=== PATIENT | female | born 1990 | race Two or more races ===

== ENCOUNTER 2020-01-21 18:08 | Emergency (ER) | payer OTHER ==
--- NOTE | 2020-01-21 19:55 | EDM.PDOC ---
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 oGldsmith is a very pleasant 29-year-old woman with no chronic medical p roblems, on no medications, who now presents to the ED over a concern of a possible miscarriage. She states that her LMP was 5-1/2 weeks ago. She is . She states that she is not trying to get , but she is sexually active with her , and on no form of control whatsoever. She states that she passed a large blood clot or tissue around 15:00 this afternoon, followed by vaginal bleeding for about half an hour. She has been experiencing pelvic cramps. She has had scant vaginal bleeding since about 15:30. No urinary symptoms. No prior similar symptoms. Here in the ED, the patient is found to be hemodynamically stable, afebrile, saturating 100% on room air. Other than today's events, the patient denies having a recent fever, chills, sore throat, ear pain, nasal or sinus congestion, cough, dyspnea, chest pain, palpitations, nausea, vomiting, constipation, diarrhea, abdominal pain, urinary symptoms, recent weight gain or weight loss, recent bloody bowel movements or black bowel movements, recent joint aches, headaches, or rashes. The patient does not have a PCP or Fabrication Technician. Pelvic Pain Score (Numeric/FACES): 6 - Related Data Allergies Allergy/AdvReac Type Severity Reaction Status Date / Time No Known Allergies Allergy Verified 01/21/20 18:45 Home Meds: Home Meds . 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 ED EXAM - Physical Exam Exam: See Below Exam Limited By: No Limitations General Appearance: Alert, WD/WN, No Apparent Distress Eye Exam: Bilateral Eye: EOMI, Normal Inspection Ears: Normal External Exam, Hearing Grossly Normal Nose: Normal Inspection Throat/Mouth: No Airway Compromise, Other (Wearing a surgical mask) Head: Atraumatic, Normocephalic Neck: Normal Inspection, Full Range of Motion Respiratory/Chest: No Respiratory Distress, Lungs Clear, Normal Breath Sounds, No Accessory Muscle Use Cardiovascular: Normal Peripheral Pulses, Regular Rate, Rhythm, No Edema, No Gallop, No JVD, No Murmur, No Rub GI/Abdominal Exam: Normal Bowel Sounds, Soft, No Organomegaly, No Distention, No Abnormal Bruit, No Mass, Tender (Very slight, suprapubically only. Nontender elsewhere.) Rectal Exam: Deferred Back Exam: Normal Inspection, Full Range of Motion, NT Extremities: Normal Inspection, Normal Range of Motion, No Pedal Edema, Normal Capillary Refill Neurological: Alert, Oriented, Normal Cognition, No Motor/Sensory Deficits Psychiatric: Normal Affect Skin Exam: Warm, Dry, Intact, Normal Color, No Rash Course - Vital Signs Last Recorded V/S: Last Vital Signs Temp 36.9 C 01/21/20 18:42 Pulse 66 01/21/20 18:42 Resp 20 01/21/20 18:42 BP 110/73 01/21/20 18:42 Pulse Ox 100 01/21/20 18:42 - Orders/Labs/Meds Labs: Laboratory Tests 01/21/20 Range/Units 19:57 Urine HCG, Qual Negative (NEGATIVE) - Re-Assessments/Exams Free Text/Narrative Re-Assessment/Exam: 01/21/20 19:52 As above, the patient passed either a blood clot or some tissue, along with some blood around 15:00 this afternoon, and has been experiencing some pelvic cramps and scant vaginal bleeding since. She is presuming that she had an unknown and suffered a miscarriage, and, based on her history, she is probably correct, since her LMP was about 5-1/2 weeks ago. The quickest way to determine if this could be a spontaneous is to check a urine test. If positive, I will perform a pelvic exam to examine her cervix, and order an ultrasound and blood type. If negative, then no further work-up is necessary. 01/21/20 20:29 Notified by Lorene TRUONG that the patient told her that she needs to go home to pick up driver her kids - ? - the patient does not have any children, so I am not sure what that means. A urine sample for a urine test has been sent to the lab, but has not yet resulted. If the patient needs to leave, I have no objection. 01/21/20 20:41 The patient's urine test returned negative, indicating that she did not experience a miscarriage today, rather, it likely represents a delayed menstrual period. Departure - Departure Time of Disposition: 20:30 Disposition: Home, Self-Care 01 Condition: Good Clinical Impression: Delayed menstruation - Discharge Information *PRESCRIPTION DRUG MONITORING PROGRAM REVIEWED*: Not Applicable *COPY OF PRESCRIPTION DRUG MONITORING REPORT IN PATIENT CONCEPCION: Not Applicable Referrals: PCP,None [Primary Care Provider] - Forms: ED Department Discharge Sepsis Event Note (ED) - Evaluation Sepsis Screening Result: No Definite Risk - Focused Exam Vital Signs: Vital Signs Temp Pulse Resp BP Pulse Ox 01/21/20 18:42 36.9 C 66 20 110/73 100
== END 2020-01-21 20:30 | disposition home or self-care (01) ==
LOC: JD.ED 18:08
DX: N91.0 Primary amenorrhea (principal)
CPT/HCPCS: 81025; 99282; 99284

== ENCOUNTER 2020-01-23 19:20 | Emergency (ER) | payer OTHER ==
--- NOTE | 2020-01-23 20:13 | EDM.PDOC ---
ED HPI GENERAL MEDICAL PROBLEM - General Chief Complaint: [place] Problem Stated Complaint: HAD MISCARRIAGE NOW CRAMPING Time Seen by Provider: 01/23/20 19:27 Source of Information: Reports: Patient History Limitations: Reports: No Limitations - History of Present Illness INITIAL COMMENTS - FREE TEXT/NARRATIVE: Mrs. Goldsmith is a very pleasant 29-year-old woman with no chronic medical problems, on no medications, who was seen by me in this ED 2 nights ago, 01/21/2020, for a concerned that she may have suffered a spontaneous . She stated that her LMP was 5-1/2 weeks ago, G0, P0, and that she was not trying to get , but that she was sexually active with her and on no form of control whatsoever. She stated that she had passed a large blood clot or tissue around 15:00 that afternoon, followed by vaginal bleeding for about half an hour, followed by pelvic cramps and scant vaginal bleeding. She did not have any urinary symptoms and had not suffered prior similar symptoms. She states that EMS had been summoned, and told her that she had had a miscarriage. She came to the ED by private vehicle and was found to be hemodynamically stable, afebrile, saturating 100% on room air. Her physical exam revealed very slight suprapubic tenderness, but no tenderness elsewhere, with the remainder of her physical exam being unremarkable. Work-up included a urine test, which returned negative, however, the patient decided to leave the ED about 10 minutes prior to the urine test results, therefore she left under the impression that she had suffered a miscarriage. The patient now returns the ED stating that she has had increased cramps although minimal vaginal bleeding. She states that she has also been feeling more emotional than normal. She has not received any medical care since being seen on Monday, and did not take a home test. Here in the ED, the patient is found to be hemodynamically stable, afebrile, saturating 96% on room air. Other than the pelvic cramps with scant vaginal bleeding, the patient denies having a recent fever, chills, sore throat, ear pain, nasal or sinus congestion, cough, dyspnea, chest pain, palpitations, nausea, vomiting, constipation, diarrhea, abdominal pain, urinary symptoms, recent weight gain or weight loss, recent bloody bowel movements or black bowel movements, recent joint aches, headaches, or rashes. The patient does not have a PCP or Risk Control Officer. Lower Pelvic Pain Score (Numeric/FACES): 4 - Related Data Allergies Allergy/AdvReac Type Severity Reaction Status Date / Time No Known Allergies Allergy Verified 01/23/20 19:37 Home Meds: Home Meds . 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 ED EXAM, RENAL/ - Physical Exam Exam: See Below Exam Limited By: No Limitations General Appearance: Alert, WD/WN, No Apparent Distress GI/Abdominal: Normal Bowel Sounds, Soft, No Organomegaly, No Distention, No Abnormal Bruit, No Mass, Tender (Minimal suprapubic, otherwise nontender) Course - Vital Signs Last Recorded V/S: Last Vital Signs Temp 36.6 C 01/23/20 19:30 Pulse 88 01/23/20 19:30 Resp 16 01/23/20 19:30 BP 127/85 01/23/20 19:30 Pulse Ox 96 01/23/20 19:30 - Re-Assessments/Exams Free Text/Narrative Re-Assessment/Exam: 01/23/20 20:06 As above, the patient was seen in this ED on 01/21/2020 after passing either a blood clot or tissue, followed by pelvic cramps and spotting. She states that EMS had told her that she had suffered a miscarriage of an unknown . Unfortunately, the patient left the ED without waiting for her urine test, which resulted just 10 minutes later. It was negative, which we would not expect if the patient had just suffered a spontaneous , as -hCG would be expected to still be present for some time. She now returns to the ED with continued cramps, spotting, and feeling increasingly emotional, still concerned that she suffered a miscarriage 2 days ago. I explained to the patient that if in fact EMS had told her that she had suffered a miscarriage, that it was unfortunate, because EMS is not trained to make diagnoses, which she understood. I offered to perform a quantitative hCG, which is more sensitive than a urine test, but the patient declined. This time, I have to conclude that the patient is suffering from an usual and late menstrual period, but not a spontaneous . The patient expressed understanding. I do not object to the patient declining a serum quantitative hCG level, because even if positive, it would not change our management. While the patient is having pelvic cramps, she has minimal vaginal bleeding, and therefore neither medical nor surgical treatment is indicated. The patient expressed understanding of this, as well. Departure - Departure Time of Disposition: 20:10 Disposition: Home, Self-Care 01 Condition: Good Clinical Impression: Menstrual cramps - Discharge Information *PRESCRIPTION DRUG MONITORING PROGRAM REVIEWED*: Not Applicable *COPY OF PRESCRIPTION DRUG MONITORING REPORT IN PATIENT CONCEPCION: Not Applicable Instructions: Dysmenorrhea Referrals: Jodi Arrington NP [Nurse Practitioner] - Forms: ED Department Discharge Additional Instructions: You were seen in the emergency room for pelvic cramps and vaginal spotting after passing a blood clot or possible tissue on 01/21/2020. The urine test on 01/21/2020 was negative, indicating that not only were you not , but that it was unlikely that you had recently been . In other words, you did not suffer a miscarriage on Monday. Based on your history, physical exam, and negative test on 01/21/2020, you are suffering from menstrual cramps. We recommend that you take [id number] ibuprofen or Midol as needed for discomfort. A heating pad may also help. We recommend that you follow-up in the clinic with with Jodi Arrington NP, or one of the other providers, to establish a PCP. If any other problems, please do not hesitate to return to the ER. Sepsis Event Note (ED) - Evaluation Sepsis Screening Result: No Definite Risk - Focused Exam Vital Signs: Vital Signs Temp Pulse Resp BP Pulse Ox 01/23/20 19:30 36.6 C 88 16 127/85 96
== END 2020-01-23 20:21 | disposition home or self-care (01) ==
LOC: JD.ED 19:20
DX: N94.6 Dysmenorrhea, unspecified (principal)
CPT/HCPCS: 99282; 99283

== ENCOUNTER 2020-08-19 08:23 | Emergency (ER) | payer BC, OTHER ==
--- NOTE | 2020-08-19 08:51 | EDM.PDOC ---
ED HPI GENERAL MEDICAL PROBLEM - General Chief Complaint: Gastrointestinal Problem Stated Complaint: VOMITING [id number] Time Seen by Provider: 08/19/20 08:42 Source of Information: Reports: Patient History Limitations: Reports: No Limitations - History of Present Illness INITIAL COMMENTS - FREE TEXT/NARRATIVE: 30-year-old female presents to the ED for evaluation of intractable nausea and vomiting that she has been experiencing primarily since August 14. Patient states she started back on Prozac 20 mg once daily for depression anxiety symptoms on July 30. Subsequently she has developed intractable nausea and vomiting without diarrhea. Infectious not had a bowel movement for at least 5 to 6 days. Note denies any hematemesis. Emesis has been primarily bilious or dry heaves. Feels mild dizziness and lightheadedness and generalized weakness. Prozac was discontinued tenured yesterday at the request of her primary care provider Susy Farfan. No previous abdominal surgery. test done yesterday was negative. Other labs revealed a mild hypokalemia. Patient reports that she had a similar reaction to Prozac in the past. Has been taking Zofran 4 mg sublingual every 4-6 hours without relief of nausea or vomiting. Onset: Gradual Onset Date: 08/14/20 (Has felt nauseated but began vomiting August 14. Started back on Prozac 20 mg daily July 30) Duration: Day(s):, Constant Location: Reports: Abdomen (Persistent upper abdominal discomfort with nausea and vomiting dry heaves.) Quality: Reports: Other (Current vomiting primarily bilious material) Severity: Severe Improves with: Reports: None Worsens with: Reports: Other (Zofran sublingual has not helped at all controlled the nausea or vomiting.) Context: Denies: Activity, Exercise ( Trying to eat or drink.), Lifting, Sick Contact, Trauma, Other Associated Symptoms: Reports: Loss of Appetite, Malaise, Nausea/Vomiting (Intractable nausea and vomiting for the last 5 days). Denies: Confusion, Chest Pain, Cough, cough w sputum, Diaphoresis, Fever/Chills, Headaches, Rash, Seizure Treatments BIG 6 DEALER: Reports: Other (see below) (None.) Generalized Pain Score (Numeric/FACES): 5 Abdomen Pain Score (Numeric/FACES): 3 - Related Data Allergies Allergy/AdvReac Type Severity Reaction Status Date / Time No Known Allergies Allergy Verified 08/19/20 08:30 Home Meds: Home Meds FLUoxetine HCl [Fluoxetine HCl] 20 mg PO DAILY 08/19/20 [History] LORazepam [Ativan] 0.5 mg PO BID PRN 08/19/20 [History] Ondansetron [Zofran ODT] 0.4 mg PO ASDIRECTED PRN 08/19/20 [History] Prochlorperazine Maleate [Compazine] 5 mg PO Q8H PRN #12 tablet 08/19/20 [Rx] Past Medical History - Past Health History Medical/Surgical History: Denies Medical/Surgical History - Past Surgical History HEENT Surgical History: Reports: Oral Surgery (wisdom teeth extraction) Social & Family History - Family History Family Medical History: No Pertinent Family History - Caffeine Use Caffeine Use: Reports: Energy Drinks - Living Situation & Occupation Living situation: Reports: , with Spouse 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 Denies: Fever HEENT: Reports: No Symptoms Respiratory: Reports: No Symptoms Cardiovascular: Reports: No Symptoms Endocrine: Reports: No Symptoms GI/Abdominal: Reports: Abdominal Pain (Epigastric abdominal discomfort.), Decreased Appetite, Nausea, Vomiting (Intractable nausea and vomiting of bilious emesis.) : Reports: No Symptoms Musculoskeletal: Reports: No Symptoms Skin: Reports: No Symptoms Neurological: Reports: Dizziness (Occasional dizziness), Weakness (Early signs o f weakness.) Psychiatric: Reports: Anxiety, Depression Hematologic/Lymphatic: Reports: No Symptoms Immunologic: Reports: No Symptoms ED EXAM, GI/ABD - Physical Exam Exam: See Below Exam Limited By: No Limitations General Appearance: Alert, WD/WN, No Apparent Distress, Other (Patient is afebrile on examination reported temperature is 35.8 degrees which she feels warmer than this. Heart rate is 82 and sinus respiratory is 18 pulse ox 98% on room air BP 143/93.) Eyes: Bilateral: Normal Appearance (No scleral icterus or blepharal pallor.) Throat/Mouth: Normal Inspection, Normal Lips, Normal Oropharynx, Other Head: Atraumatic (Tongue is mildly moist.), Normocephalic Neck: Normal Inspection, Supple, Non-Tender, Full Range of Motion. No: Lymphadenopathy (L), Lymphadenopathy (R) Respiratory/Chest: No Respiratory Distress, Lungs Clear, Normal Breath Sounds, No Accessory Muscle Use Cardiovascular: Normal Peripheral Pulses, Regular Rate, Rhythm, No Edema, No Gallop, No Murmur GI/Abdominal Exam: Normal Bowel Sounds, Soft, Non-Tender, No Organomegaly, No Abnormal Bruit, No Mass, Pelvis Stable Extremities: Normal Inspection, Normal Range of Motion, Non-Tender, No Pedal Edema Neurological: Alert, Oriented, CN II-XII Intact, Normal Cognition Psychiatric: Normal Affect, Normal Mood Skin Exam: Warm, Dry, Intact, Normal Color, No Rash Course - Vital Signs Last Recorded V/S: Last Vital Signs Temp 37.0 C 08/19/20 10:58 Pulse 78 08/19/20 10:58 Resp 16 08/19/20 10:58 BP 116/77 08/19/20 10:58 Pulse Ox 100 08/19/20 10:58 - Orders/Labs/Meds Labs: Laboratory Tests 08/19/20 08/19/20 08/19/20 Range/Units 08:45 08:45 08:45 WBC 7.71 (3.98-10.04) K/mm3 RBC 4.59 (3.98-5.22) M/mm3 Hgb 14.3 (11.2-15.7) gm/dl Hct 41.8 (34.1-44.9) % MCV 91.1 (79.4-94.8) fl MCH 31.2 (25.6-32.2) pg MCHC 34.2 (32.2-35.5) g/dl RDW Std Deviation 41.7 (36.4-46.3) fL Plt Count 297 (182-369) K/mm3 MPV 9.6 (9.4-12.3) fl Neut % (Auto) 72.1 H (34.0-71.1) % Lymph % (Auto) 22.2 (19.3-51.7) % Pacific % (Auto) 4.7 (4.7-12.5) % Eos % (Auto) 0.1 L (0.7-5.8) Baso % (Auto) 0.6 (0.1-1.2) % Neut # (Auto) 5.56 (1.56-6.13) K/mm3 Lymph # (Auto) 1.71 (1.18-3.74) K/mm3 Pacific # (Auto) 0.36 (0.24-0.36) K/mm3 Eos # (Auto) 0.01 L (0.04-0.36) K/mm3 Baso # (Auto) 0.05 (0.01-0.08) K/mm3 Sodium 138 (136-145) mEq/L Potassium 3.9 (3.5-5.1) mEq/L Chloride 102 (98-107) mEq/L Carbon Dioxide 23 (21-32) mEq/L Anion Gap 16.9 H (5-15) BUN 26 H (7-18) mg/dL Creatinine 0.8 (0.55-1.02) mg/dL Est Cr Clr Drug Dosing 84.29 mL/min Estimated GFR (MDRD) > 60 (>60) mL/min BUN/Creatinine Ratio 32.5 H (14-18) Glucose 102 (74-106) mg/dL Calcium 8.6 (8.5-10.1) mg/dL Total Bilirubin 0.5 (0.2-1.0) mg/dL AST 26 (15-37) U/L ALT 41 (14-59) U/L Alkaline Phosphatase 58 (46-116) U/L C-Reactive Protein <0.2 (<1.0) mg/dL Total Protein 7.8 (6.4-8.2) g/dl Albumin 4.4 (3.4-5.0) g/dl Globulin 3.4 gm/dL Albumin/Globulin Ratio 1.3 (1-2) Lipase 90 (73-393) U/L Ketones (0.0-0.3) mM SARS-CoV-2 RNA (MICHAEL) (NEGATIVE) 08/19/20 08/19/20 Range/Units 08:45 09:20 WBC (3.98-10.04) K/mm3 RBC (3.98-5.22) M/mm3 Hgb (11.2-15.7) gm/dl Hct (34.1-44.9) % MCV (79.4-94.8) fl MCH (25.6-32.2) pg MCHC (32.2-35.5) g/dl RDW Std Deviation (36.4-46.3) fL Plt Count (182-369) K/mm3 MPV (9.4-12.3) fl Neut % (Auto) (34.0-71.1) % Lymph % (Auto) (19.3-51.7) % Pacific % (Auto) (4.7-12.5) % Eos % (Auto) (0.7-5.8) Baso % (Auto) (0.1-1.2) % Neut # (Auto) (1.56-6.13) K/mm3 Lymph # (Auto) (1.18-3.74) K/mm3 Pacific # (Auto) (0.24-0.36) K/mm3 Eos # (Auto) (0.04-0.36) K/mm3 Baso # (Auto) (0.01-0.08) K/mm3 Sodium (136-145) mEq/L Potassium (3.5-5.1) mEq/L Chloride (98-107) mEq/L Carbon Dioxide (21-32) mEq/L Anion Gap (5-15) BUN (7-18) mg/dL Creatinine (0.55-1.02) mg/dL Est Cr Clr Drug Dosing mL/min Estimated GFR (MDRD) (>60) mL/min BUN/Creatinine Ratio (14-18) Glucose (74-106) mg/dL Calcium (8.5-10.1) mg/dL Total Bilirubin (0.2-1.0) mg/dL AST (15-37) U/L ALT (14-59) U/L Alkaline Phosphatase (46-116) U/L C-Reactive Protein (<1.0) mg/dL Total Protein (6.4-8.2) g/dl Albumin (3.4-5.0) g/dl Globulin gm/dL Albumin/Globulin Ratio (1-2) Lipase (73-393) U/L Ketones 0.03 (0.0-0.3) mM SARS-CoV-2 RNA (MICHAEL) Positive H (NEGATIVE) Meds: Medications Discontinued Medications Generic Name Dose Route Start Last Admin Trade Name Freq PRN Reason Stop Dose Admin Diphenhydramine HCl 12.5 mg 08/19/20 08:52 08/19/20 09:00 Diphenhydramine 50 Mg/Ml Sdv IVPUSH 08/19/20 08:53 12.5 mg ONETIME ONE Administration Dextrose/Lactated Ringer's 1,000 mls @ 999 mls/hr 08/19/20 09:00 08/19/20 09:04 Dextrose 5%-Lactated Ringers IV 999 mls/hr ASDIRECTED MAXWELL Administration Metoclopramide HCl 7.5 mg 08/19/20 08:52 08/19/20 09:02 Metoclopramide 10 Mg/2 Ml Sdv IVPUSH 08/19/20 08:53 7.5 mg ONETIME ONE Administration Ondansetron HCl 4 mg 08/19/20 10:50 08/19/20 10:56 Ondansetron 4 Mg/2 Ml Sdv IVPUSH 08/19/20 10:51 4 mg ONETIME ONE Administration - Radiology Interpretation Free Text/Narrative:: 30-year-old female presents to the ED with a history of intractable nausea and vomiting for the last 5 days. She believes is secondary to use of Prozac 20 mg once daily which was started on July 30 for underlying anxiety depression. She believes this because she was treated with the same medication in the past and had similar reaction in terms of recurrent nausea and vomiting. She denies any diarrhea. She denies any fever chills. Generalized weakness. Emesis has been bilious without any hematemesis. She has not had a bowel movement for at least 4 to 5 days. She has been using Zofran sublingual 4 mg every 4 to 6 hours without any relief of the nausea vomiting since yesterday. Prozac 20 mg daily was discontinued by her primary care provider yesterday. Examination in the ED is essentially normal. Plan IV D5 Ringer's lactate at open to provide rehydration. Will reassess serum electrolytes CBC and serum lipase levels. - Re-Assessments/Exams Free Text/Narrative Re-Assessment/Exam: 08/19/20 09:59 Patient did get fairly sleepy after IV Benadryl 12.5 mg IV. She also felt a little anxious presumably due to the Reglan potentially causing a dystonic reaction when mixed with Prozac. She reports nausea seems to be better. I will give her some water to try and sip on. 08/19/20 10:01Labs reveal a white count of 7.71 with 72% neutrophils. Hemoglobin 14.3 with hematocrit of 41.8 platelet count 297,000. Sodium 138 potassium 3.9 chloride 102 bicarb 23. Anion gap is 16.9. BUN is 26 with a creatinine of 0.8 glucose is 102 with a calcium of 8.6 liver function normal C- reactive protein less than 0.2 total protein 7.8 with an albumin fraction of 4.4 serum lipase normal at 90 and serum ketones are normal at 0.03. Therefore she is showing mild dehydration with a BUN/creatinine ratio of 32.5. Renal function is preserved. No other abnormalities are appreciated. Particular serum potassium is 3.9 today. 08/19/20 10:11 COVID-19 screen is positive. She has been appraised of the findings. She will have a 1 view chest x-ray done at this time. I did speak with her primary care provider Susy Farfan to let her know the patient was Covid positive. She reports that the patient was vomiting intermittently even before starting the Prozac which is being primarily used to bring her anxiety under control. Patient is essentially asymptomatic other than vomiting from potential COVID-19 illness. It is impossible to tell when she may have become ill with COVID-19 illness. We will suggest that it is likely Monday last week August 14 and keep her out of the workplace for another week. At this time I did not entertain monoclonal antibody therapy unless there is evidence of pneumonia on chest x-ray. O2 sats are 100% on room air. 08/19/20 10:49 x-ray reveals known infiltrates in the lungs. Heart is slightly bulbous but within normal limits. Patient remains nauseated. Will try Zofran 4 mg IV. Departure - Departure Time of Disposition: 11:14 Disposition: Home, Self-Care 01 Condition: Fair Clinical Impression: COVID-19, Intractable nausea and vomiting, Adverse effects of medication - Discharge Information *PRESCRIPTION DRUG MONITORING PROGRAM REVIEWED*: Not Applicable *COPY OF PRESCRIPTION DRUG MONITORING REPORT IN PATIENT CONCEPCION: Not Applicable Prescriptions: Prochlorperazine Maleate [Compazine] 5 mg PO Q8H PRN #12 tablet PRN Reason: nausea Instructions: COVID-19 Frequently Asked Questions, What You Should Know About COVID-19 to Protect Yourself and Others - CDC, Nausea and Vomiting, Adult, COVID-19: Quarantine vs. Isolation - [facility] Referrals: Susy Farfan, [place] [Primary Care Provider] - Forms: ED Department Discharge, ED Return to Work/School Form Additional Instructions: Evaluation in the emergency room today in regards to intractable nausea and vom iting with nausea reported almost daily since starting Prozac 20 mg tablet July 30. Medication was discontinued yesterday by your primary care provider Susy Farfan. Zofran 4 mg under the tongue was not working well to prevent nausea and vomiting for you. Evaluation in the emergency room today reveals no major electrolyte abnormalities and normal white blood cell count showing no signs of infection. A COVID-19 screen however is positive and therefore its difficult to ascertain when your disease process started. I think we will use August 14 as a starting point. Therefore you need to be quarantined for the next week to prevent spread of the virus to others. Your treatment in the ED consisted of a liter of IV fluids with intravenous Reglan 7.5 mg to relieve nausea and vomiting. He also received Benadryl 12.5 mg to prevent any reaction between Reglan and Prozac. Subsequently received Zofran 4 mg IV due to persistent nausea before discharge home. Suggest using Phenergan gel 0.5 mils which would be 25 mg of Phenergan every 6 hours as needed for relief of nausea or vomiting. Failing this I did prescribe Compazine 5 mg tablets that could be used by mouth every 8 hours to relieve nausea or vomiting if you can keep them down. Follow- up with personal care provider if any further problems occur. Return to the ED if you develop increased shortness of breath or severe cough. Sepsis Event Note (ED) - Evaluation Sepsis Screening Result: No Definite Risk - Focused Exam Vital Signs: Vital Signs Temp Pulse Resp BP Pulse Ox 08/19/20 10:58 37.0 C 78 16 116/77 100 08/19/20 08:25 35.8 C L 82 18 143/93 H 98
[2020-08-19] MEDS ORDERED: Metoclopramide 10 MG/2 ML SDV IVPUSH ONE (08:52)
[2020-08-19] MEDS ORDERED: diphenhydrAMINE 50 MG/ML SDV IVPUSH ONE (08:52)
[2020-08-19] MEDS ORDERED: Dextrose 5%-Lactated Ringers 1,000 ML IV SCH (09:00)
[2020-08-19] MEDS ORDERED: Ondansetron 4 MG/2 ML SDV IVPUSH ONE (10:50)
--- NOTE | 2020-08-19 11:18 | CR ---
Chest: Portable view of the chest was obtained. Comparison: No prior chest imaging is available. Heart size and mediastinum are normal. Lungs are clear with no acute parenchymal change. No acute osseous abnormality is appreciated. Impression: 1. Nothing acute is appreciated on portable chest x-ray. Diagnostic code #1
== END 2020-08-19 11:41 | disposition home or self-care (01) ==
LOC: JD.ED 08:23
DX: U07.1 COVID-19 (principal); R11.2 Nausea with vomiting, unspecified; T43.225A Adverse effect of selective serotonin reuptake inhibitors, initial encounter; Z79.899 Other long term (current) drug therapy
CPT/HCPCS: 36415; 71045; 80053; 82009; 83690; 85025; 86140; 87635; 96374; 96375; 99285; J1200; J2405; J2765; J7121; 99284; U0002

== ENCOUNTER 2024-07-31 21:21 | Emergency (ER) | payer BC ==
[2024-07-31] MEDS: methylPREDNISolone Sodium Succinate 125 MG/2 ML SDV IVPUSH ONE (21:50)
[2024-07-31] MEDS: Famotidine 20 MG/2 ML SDV IVPUSH ONE (21:50)
[2024-07-31] MEDS: EPINEPHrine 1 MG/ML SDV SUBCUT ONE (21:50)
[2024-07-31] MEDS: Ondansetron 4 MG/2 ML SDV IVPUSH ONE (21:51)
[2024-07-31] MEDS: Acetaminophen 325 MG Tab PO ONE (21:51)
[2024-07-31] MEDS: Cetirizine 10 MG Tab PO ONE (21:51)
[2024-07-31] MEDS: Sodium Chloride 0.9% 1,000 ML IV ONE (21:51)
[2024-07-31] MEDS: diphenhydrAMINE 50 MG/ML SDV IVPUSH ONE (21:53)
[2024-07-31 22:02] LABS: BASOPHILS PERCENT AUTO 0.5 % (0.0-1.0); EOSINOPHILS ABSOLUTE AUTO 0.1 K/mm3 (0.0-0.4); EOSINOPHILS PERCENT AUTO 1.5 % (0.0-6.0); HEMATOCRIT 38.4 % (37.0-47.0); HEMOGLOBIN 12.7 gm/dl (12.0-16.0); IMMATURE GRAN ABSOLUTE AUTO 0.02 K/mm3 (0.00-0.05); IMMATURE GRAN PERCENT AUTO 0.3 % (0.0-0.4); LYMPHOCYTES ABSOLUTE AUTO 3.3 K/mm3 (1.0-4.8); LYMPHOCYTES PERCENT AUTO 44.1 % (24.0-44.0); MEAN CORPUSCULAR HEMOGLOBIN 30.9 pg (28.0-32.0); MEAN CORPUSCULAR HGB CONC 33.1 g/dl (32.0-36.0); MEAN CORPUSCULAR VOLUME 93.4 fl (83.0-99.0); MEAN PLATELET VOLUME 9.7 fl (9.4-12.3); MONOCYTES ABSOLUTE AUTO 0.6 K/mm3 (0.0-0.8); MONOCYTES PERCENT AUTO 7.9 % (0.0-8.0); NEUTROPHILS ABSOLUTE AUTO 3.4 K/mm3 (1.8-7.7); NEUTROPHILS PERCENT AUTO 45.7 % (41.0-71.0); PLATELET COUNT,PLT 246 K/mm3 (150-400); RED BLOOD CELL COUNT 4.11 M/mm3 (4.10-5.30)
[2024-07-31 22:27] LABS: ALBUMIN 3.2 g/dl (3.4-5.0); BILIRUBIN TOTAL 0.5 mg/dL (0.2-1.0); EST CRCL DRUG DOSING (CG) 59.82 mL/min; MAGNESIUM 1.5 mg/dL (1.8-2.4); PROTEIN TOTAL,TP 6.3 g/dl (6.4-8.2)
== END 2024-07-31 23:38 | disposition home or self-care (01) ==
LOC: JD.ED 21:21
DX: K13.0 Diseases of lips (principal); R22.0 Localized swelling, mass and lump, head; T42.6X5A Adverse effect of other antiepileptic and sedative-hypnotic drugs, initial encounter; Z86.16 Personal history of COVID-19; Z79.899 Other long term (current) drug therapy
CPT/HCPCS: 36415; 80053; 83735; 85025; 96372; 96374; 96375; 99284; A9270; J0171; J1200; J2405; J2919; J7030